=== PATIENT | female | born 1990 | race Caucasian/White ===

== ENCOUNTER 2023-06-22 10:30 | Outpatient (RCR) | payer BC, SELFPAY ==
[2023-06-09 10:54] VITALS: BP 108/65; PULSE 61; TEMP 36.4
[2023-06-09 10:56] VITALS: BMI 23.3
--- NOTE | 2023-06-09 11:40 | PC.ADMIT ---
Patient is a 33 year old female who came to [facility] on the advice of her therapist d/t increased depression with passive SI (no plan of intent) and increased anxiety. She is struggling to work and is currently taking a leave of absence from work d/t mental health. 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 Patient is alert and oriented x4. Calm and cooperative. Presented with depressed mood and anxious affect. Denied SI currently. Patient was given a copy of her safety plan if needed and I reviewed this with her. Patient denied any issues with substance use. Medications reconciled with patient and patient's pharmacy. She reports taking medications as prescribed.
--- NOTE | 2023-06-09 12:44 | P.HPPSP_ITS ---
HPI Date of Service: 06/09/23 Chief Complaint: depression,anxiety Sources of Information: patient interviewed, chart reviewed and crisis/core team assessment reviewed HPI Narrative: Patient is a 33 year old employed female who is being referred to [facility] by her therapist Paola Galeana. Patient describes a long history of depression, passive SI, chronic emotional and behavioral dysregulation, chronic destructive behaviors (mostly acting out throwing a fit ), particularly struggles with regulation in context of relationship dynamics interpersonal stressors, describes long standing issues with rejection sensitivity and fear of abandonment. Denies any aggressive behaviors toward partner or others. Mostly I get angry and frustrated easily, just throw tantrums and have a meltdown . Has been on previous med trials that were not helpful, but is currently on fluoxetine which she likes and feels is helpful and has been maitained on for over a year. Also on BCP which helps with migraines. Past Psychiatric History: IPLOC x 3: Feli x1, Harman x2 in [id number] [facility] in 2017 Reports history of depression since age 20. Reports a history of remote passive SI without intention or plan. Last experienced any SI over 7 years ago. One suicide attempt at age 20 by intentional overdose on mirtazapine, was medically treated and went IPLOC. Denies any legal history. No history of aggression. Previous med trials include: Zoloft, Wellbutrin, Remeron (overdosed on) ?Lamictal CURRENT MEDICATIONS: fluoxetine 80 mg qd oral control [facility] Medical History (Updated 06/22/23 @ 03:54 by Sepideh Duarte MD) Hx of migraines Narrative: Hospitalization x1 s/p toxic OD s/p hip surgery 2011 (repair torn labrum) Migraine headaches Concussions, no TBI No seizures G0 Nulligravid LMP: >1 yr ago Ht: 6'0 Wt: 172 lbs ALL: NKDA Surgical History (Updated 06/09/23 @ 10:53 by Kiera Pabon RN) History of hip surgery Social History: Lives at home with and their 2 children ages 10 yo daughter, 7 yo son (not biological to patient) She has been in a fpc relationship with her whom she recently in Dec 2022. 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 Is currently off on personal time, trying to apply for FMLA. Denies any precipitating or related incidents occurred at work. Raised in [place], [place] Graduated HS in 2010 Denies any hx of ADHD, LD, or other developmental hx Middle child of 3 with an older and younger brother Substance History: Alcohol use - socially ~ 1 beer/week. denies hx of abuse Cannabis in past No drug use hx No nicotine hx Trauma History: Denies hx of physical, sexual, emotional abuse Diagnostics Vital Signs (24Hr): Vital Signs - 24 hr 06/09/23 10:54 Temperature 97.6 F Pulse Rate 61 Blood Pressure 108/65 BMI result Body Mass Index 23.3 Meds/Allergies Meds Home Medications ?Medication ?Instructions ?Recorded ?Confirmed ?Type fluoxetine 40 mg capsule 80 mg PO BEDTIME 06/09/23 06/09/23 History norethindrone acetate 1 mg-ethinyl 1 tab PO DAILY 06/09/23 06/09/23 History estradiol 20 mcg tablet (Junel) propranolol 10 mg tablet See Rx Instructions .Route .COMPLEX 06/09/23 06/09/23 History rizatriptan 10 mg tablet See Rx Instructions .Route 06/09/23 06/09/23 History .COMPLEX PRN Migraine Headache Allergies Allergies Allergy/AdvReac Type Severity Reaction Status Date / Time No Known Allergies Allergy Unverified 12/06/19 18:48 Mental Status Exam Mental Status Exam Narrative: Alert, oriented, in no acute distress. Calm, cooperative, engaged. No psychomotor agitation or neurovegetative retardation. Eye contact maintained. Mood anxious,depressed, irritability affect blunted, minimal variablity. Speech normal. Thought process linear, coherent. Thought content related to stressors, +helplessness, +hopelessness, passive SI, vague plan, without intention.? Denies aggressive ideation or HI. No paranoia or delusional content elicited. No evidence of psychosis. Insight and judgment fair but adequate. Assessment & Plan Assessment & Plan (1) Mood disorder: Status: Acute Code(s): F39 - Unspecified mood [affective] disorder (2) Complex posttraumatic stress disorder: Status: Acute Code(s): F43.10 - Post-traumatic stress disorder, unspecified Plan Admit to PHP VS reviewed: feliceefjuana, BP 108/65 61bpm start oxcarbazepine 150 mg BID (will titrate as tolerated) continue fluoxetine 80 mg qAM Continue regular medications for now Routine lab work ordered UDS, EKG as indicated [facility] reviewed Continue to monitor as per protocol Patient educated on: diagnosis and medication risk/benefits Informed Consent: understands Reason for continued partial hosp. stay Substantial Risk for: inability to function, rapid decompensation and med/psych decompensation Certification I certify that partial hospital treatment is medically necessary due to the symptoms and problems resulting from the patient's mental illness and the failure to treat the patient at the partial hospital level of care would likely result in the patient requiring inpatient psychiatric care which could not be prevented at a less intensive level of care. Time Spent With Patient Time: Total time managing care of this patient today __60__ minutes.
--- NOTE | 2023-06-09 14:13 | HO.PHP ---
Client's case has been opened and reviewed in treatment team.
--- NOTE | 2023-06-17 23:38 | HO.PHPPROGNO ---
Subjective Subjective Date of Service: 06/17/23 Reason For Visit: depression,anxiety Interim History: Reports tolerating the oxcarbazepine, no side effects noted. She finds she has not been having any emotional outbursts, I'm not lashing out anymore . Says her has noticed a difference as well. She is not feeling irritable or angry. I genuinely fool good . No aggressive impulses or outbursts. Has remained under behavioral control. However she notes that she continues to shut down emotionally during times when her wants to talk about feelings, particularly when patient is receiving critical feedback about how 's feelings. Still feels very emotional internally, poor tolerance of feeling emotionally vulnerable, will just withdrawn from feeling emotionally overstimulated. Some attentional dysregulation, but limited in scope to and in the context of conversations with emotional content and reflects struggles with remote relational trauma/cPTSD issues. Denies SI, HI, AH, VH. Sleep, appetite, energy stable. ROS negative. Medication Compliance: Yes Side effects from medications: No Attending Groups: Yes Review of Systems Acute medical concerns: No Mental Status Exam Mental Status Exam Narrative: Alert, oriented, in no acute distress. Calm, cooperative, engaged. No psychomotor agitation or neurovegetative retardation. Eye contact maintained. Mood anxious,depressed, irritablity affect variable, brighter than expected otherwise mood congruent. Speech normal. Thought process linear, coherent. Thought content related to stressors, denies any helplessness, hopelessness or SI.? No aggressive ideation or HI. No paranoia or delusional content elicited. No evidence of psychosis. Insight and judgment fair but adequate. Diagnostics Vital Signs (24Hr): BMI result Body Mass Index 23.3 Assessment & Plan Assessment & Plan (1) Mood disorder: Status: Acute Code(s): F39 - Unspecified mood [affective] disorder (2) Complex posttraumatic stress disorder: Status: Acute Code(s): F43.10 - Post-traumatic stress disorder, unspecified Plan continue oxcarbazepine 300 mg BID start ABilify 2 mg qd continue fluoxetine 80 mg qd reviewed r/b/se of starting ABilify as well as drug drug interactions pt would like to cont at 80 mg fluoxetine, we do not anticipate needing a high dose of Abilify given oxcarbazepine is reportedly therapeutic Patient educated on: diagnosis, medication risk/benefits and substance abuse Informed Consent: understands Reason for contiued partial hosp. stay Substantial Risk for: inability to function, rapid decompensation and med/psych decompensation Certification I certify that partial hospital treatment is medically necessary due to the symptoms and problems resulting from the patient's mental illness and the failure to treat the patient at the partial hospital level of care would likely result in the patient requiring inpatient psychiatric care which could not be prevented at a less intensive level of care. Total time managing care of this patient today _30___ minutes. Discharge Plan Discharge Attending provider: Sepideh Duarte Medications: New oxcarbazepine 300 mg tablet See Rx Instructions .ROUTE .COMPLEX Qty: 30 0RF Rx Instructions: take 1/2 tablet po BID for 4-6 days then increase dose to one tablet po BID aripiprazole 2 mg tablet 2 mg PO BEDTIME Qty: 20 0RF Continued fluoxetine 40 mg capsule 80 mg PO BEDTIME propranolol 10 mg Tablet See Rx Instructions .ROUTE .COMPLEX Rx Instructions: Take 1/2 tab BID x 1 week then increase to 1 tab BID for 1 week, then increase to 2 tabs BID. norethindrone ac-eth estradiol [04/09 (21)] 1-20 mg-mcg tablet 1 tab PO DAILY rizatriptan 10 mg Tablet See Rx Instructions .ROUTE .COMPLEX PRN (Reason: Migraine Headache) Rx Instructions: Take 1/2 to 1 tab PRN daily for migraine headache. NTE 2 tabs in a day.
--- NOTE | 2023-06-21 15:56 | P.PNPSP_ITS ---
Subjective Subjective Date of Service: 06/21/23 Reason For Visit: depression,anxiety Interim History: Patient seen for follow-up, anticipating discharge tomorrow. I'm heading back to work..I got mixed feeling about it, don't totally feel ready . Says felt more sad on Abilify and stopped it. Is agreeable to switching to Latuda. Patient notes improvements in irritability since starting on Trileptal, severity has improved from a 10/10 on admission to a 5/10 in severity. CUrrent dose at 300 mg BID. Medication compliant, medications well-tolerated. Denies any adverse effects.? Mood is stable.? Denies any hopelessness or SI. Denies thoughts of harming self or others at this time. Denies any aggressive ideation or HI. Denies any paranoia or AH or VH. Sleep, appetite, energy stable. Mental Status Exam Mental Status Exam Narrative: Alert, oriented, in no acute distress. Calm, cooperative, engaged. Eye contact maintained. Mood anxious, depressed, irritability affect blunted, minimal variablity. Speech normal. Thought process linear, coherent. Thought content related to stressors, denies any current thoughts of harming self or others. Denies aggressive ideation or HI. No paranoia or delusional content elicited. No evidence of psychosis. Insight and judgment fair but adequate. Diagnostics Vital Signs (24Hr): BMI result Body Mass Index 23.3 Assessment & Plan Assessment & Plan (1) Mood disorder: Status: Acute Code(s): F39 - Unspecified mood [affective] disorder Assessment and Plan: r/o IED (2) Complex posttraumatic stress disorder: Status: Acute Code(s): F43.10 - Post-traumatic stress disorder, unspecified (3) Mental disorder: Status: Acute Code(s): F99 - Mental disorder, not otherwise specified Assessment and Plan: Unstable personality development r/o Borderline Personality Disorder Plan Discharge from [facility] tomorrow discontinue Abilify 2mg due to attributed adverse effects (constipation, worsening depression) will start Latuda 20 mg qd with supper for any issues will plan to speak with patient by phone tomorrow continue oxcarbazepine 300 mg BID continue fluoxetine 80 mg qAM continue propranolol 10 mg BID PRN headache continue rizatriptan for migraines Refills sent to pharmacy Will defer further medication management to outpatient provider Safety plan reviewed Patient educated on: diagnosis, medication risk/benefits and substance abuse Reason for contiued partial hosp. stay Substantial Risk for: harm to self, inability to function and rapid decompensation Certification I certify that partial hospital treatment is medically necessary due to the symptoms and problems resulting from the patient's mental illness and the failure to treat the patient at the partial hospital level of care would likely result in the patient requiring inpatient psychiatric care which could not be prevented at a less intensive level of care. Total time managing care of this patient today _30___ minutes. Discharge Plan Discharge Attending provider: Sepideh Duaret Medications: New lurasidone 20 mg tablet 20 mg PO QPM Qty: 20 0RF Rx Instructions: must administer with food (at least 350 calories) oxcarbazepine 300 mg tablet 300 mg PO BID 15 Days Qty: 30 0RF Continued fluoxetine 40 mg capsule 80 mg PO BEDTIME propranolol 10 mg Tablet See Rx Instructions .ROUTE .COMPLEX Rx Instructions: Take 1/2 tab BID x 1 week then increase to 1 tab BID for 1 week, then i ncrease to 2 tabs BID. norethindrone ac-eth estradiol [04/09 (21)] 1-20 mg-mcg tablet 1 tab PO DAILY rizatriptan 10 mg Tablet See Rx Instructions .ROUTE .COMPLEX PRN (Reason: Migraine Headache) Rx Instructions: Take 1/2 to 1 tab PRN daily for migraine headache. NTE 2 tabs in a day. Stand Alone Forms: Patient Portal Discharge page Print Language: Norwegian
--- NOTE | 2023-06-21 17:43 | HO.PHP ---
[facility] staff member followed up with Misty to review with her how she is feeling about discharge. Misty was tearful and talked about how she has been feeling ups and downs throughout the program. Misty talked about a recent position she wanted at work that she did not receive, which led to negative self talk. Misty also talked about her relationship. [facility] staff member suggested couples therapy and encouraged her to search for one on [employer] with her . Misty was receptive. Misty also expressed uncertainty around extending time and expressed she will inform the staff member tomorrow. [facility] staff member was receptive.
== END 2023-06-22 23:59 | disposition home or self-care (01) ==
LOC: HO.PHPA 10:30
PROVIDERS: Visit Provider Psychiatry & Neurology Psychiatry
DX: F39 Unspecified mood [affective] disorder (principal); F43.10 Post-traumatic stress disorder, unspecified; Z79.899 Other long term (current) drug therapy
CPT/HCPCS: 90791; 90853

== ENCOUNTER 2025-01-07 15:30 | Emergency (ER) | payer BC, SELFPAY ==
[2025-01-07 15:34] VITALS: BP 125/58; PULSE 61; RESP 18; TEMP 36.6; O2SAT 98; BMI 23.7
--- NOTE | 2025-01-07 15:34 | ED.GENADULT ---
HPI - General Adult General Chief complaint: Psychiatric Symptoms Stated complaint: SI Time Seen by Provider: 01/07/25 16:00 Source: patient Mode of arrival: ambulatory Limitations: no limitations History of Present Illness ED Provider: HPI narrative: 34-year-old female, history of depression, this is longstanding, passive SI in the past, reports that she has tried to hurt herself in the past , chronic emotional and behavioral dysregulation, states has been having suicidal thoughts, and no really underlying stressors identified has been getting worse over the past 2 weeks. No drug or alcohol use reported Related Data Home Medications ?Medication ?Instructions ?Recorded ?Confirmed fluoxetine 40 mg capsule 80 mg PO BEDTIME 06/09/23 01/07/25 norethindrone acetate 1 mg-ethinyl 1 tab PO DAILY 06/09/23 01/07/25 estradiol 20 mcg tablet (Junel) propranolol 10 mg tablet 40 mg PO DAILY 06/09/23 01/07/25 Previous Rx's ?Medication ?Instructions ?Recorded oxcarbazepine 300 mg tablet 300 mg PO BID 15 days #30 tabs 06/21/23 Allergies Allergy/AdvReac Type Severity Reaction Status Date / Time cyclobenzaprine Allergy Unknown Verified 01/07/25 15:35 gabapentin Allergy Unknown Verified 01/07/25 15:35 Review of Systems Constitutional: Constitutional: Reports as per [facility] Past Medical History Medical History (Updated 01/07/25 @ 18:38 by Hai Warner DO) Hx of migraines Surgical History (Updated 06/09/23 @ 10:53 by Kiera Pabon RN) History of hip surgery Social History Social History Household Members: Spouse, Family and Children Patient Tobacco Use Status: Never used Tobacco Advance Directives: No Advance Directives Information Provided: Yes Do you have a plan to hurt others: No Plan Physical Exam ED Exam Exam: General: ?Appears of stated age ? ?CV: RRR, no obvious murmurs appreciated ? ?Resp: ?No wheezing rales rhonchi no stridor moving air well ? Abd: ?Bowel sounds are present, no tenderness no rebound no rigidity ? ?MSK: FROM, strength 5/5 all extremities ? Skin: Warm, dry, intact, ? ?Neuro: ?Alert and oriented x3, moving upper and lower extremities symmetrically, no obvious facial asymmetry noted, cranial nerves 2-12 intact Psych: Good eye contact, emotional, tearful Vital Signs: Vital Signs - 24 hr 01/07/25 15:34 Temperature 98 F Pulse Rate 61 Respiratory Rate 18 Blood Pressure 125/58 L Pulse Oximetry 98 Oxygen Delivery Method Room Air BMI result Body Mass Index 23.7 Course Course Course Narrative: RME, this is a rapid medical exam performed by Steve Iglesias please refer to primary provider for complete H&P- 34-year-old female with a history of complex posttraumatic stress disorder, depression presents for evaluation of suicidal ideation. She reports thoughts of harming himself. She has not tried to harm himself at all but has in the past. Plan for medical clearance and care team consult Medical Decision Making Medical Decision Making MDM Narrative: 4:16 PM 01/07/2025 (Dr. Hai Warner): Pleasant young woman with a history of depression, on fluoxetine, history of complex posttraumatic stress disorder, mood disorder, presenting with suicidal thoughts, no stressors identified, has been using medications regular basis, offered to provide something for the patient that she was very tearful and anxious, she declined, will await clearance and crisis evaluation 6:36 PM 01/07/2025 (Dr. Hai Warner): Cleared by crisis team, we will follow up in respite Differential Diagnosis Differential Diagnoses: The differential diagnosis associated with the presentation includes (SI, HI, substance use disorder, anxiety, depression) Lab Data 01/07/25 16:32 01/07/25 16:33 Labs: Lab Results 01/07/25 01/07/25 Range/Units 16:32 16:33 WBC 8.7 (4.8-10.8) X10*3/uL RBC 3.71 L (4.20-5.50) X10*6/uL Hgb 11.3 L (12.0-16.0) g/dl Hct 33.2 L (37.0-47.0) % MCV 89.5 (80.0-98.0) fL MCH 30.5 (27.0-33.0) pg MCHC 34.0 (31.0-35.0) g/dl RDW 12.3 (11.0-16.0) % Plt Count 272 (160-400) X10*3/uL MPV 10.0 (9.4-12.3) fL Immature Gran % (Auto) 0.3 (0.0-0.4) % Neut % (Auto) 65.9 (45-73) % Lymph % (Auto) 25.5 (20-40) % Barnes % (Auto) 5.5 (2-11) % Eos % (Auto) 2.3 (0-4) % Baso % (Auto) 0.5 (0-2) % Lymph # (Auto) 2.2 (1.2-4.9) X10*3/uL Barnes # (Auto) 0.5 (0.1-1.2) X10*3/uL Eos # (Auto) 0.2 (0.0-0.4) X10*3/uL Baso # (Auto) 0.0 (0.0-0.2) X10*3/uL Abs Immat Gran (auto) 0.03 (0.00-0.03) X10*3/uL Absolute Neuts (auto) 5.7 (2.0-8.3) x10*3/uL Absolute Nucleated RBC 0.000 (0.0-0.012) X10*3/uL Nucleated RBC % (auto) 0.0 (0.0-0.2) /100WBC Sodium 139 (135-145) mmol/L Potassium 4.1 (3.3-5.1) mmol/L Chloride 107 (96-108) mmol/L Carbon Dioxide 27 (22-29) mmol/L Anion Gap 9 L (12-20) BUN 15 (9-16) mg/dL Creatinine 0.86 (0.5-1.4) mg/dL Estim Creat Clear Calc 108.4 Estimated GFR > 60 Random Glucose 87 (60-115) mg/dL Calcium 9.5 (8.4-10.2) mg/dL Total Bilirubin 0.3 (0.0-1.0) mg/dL AST 18 (5-31) U/L ALT 28 (0-31) U/L Alkaline Phosphatase 66 (39-117) U/L Total Protein 6.7 (6.5-8.0) g/dL Albumin 4.2 (3.5-5.0) g/dL Urine Color Yellow Urine Appearance Clear Urine pH 5.5 (5.0-9.0) Ur Specific [place] 1.025 (1.005-1.025) Urine Protein Negative (Neg-Trace) mg/dL Urine Glucose (UA) Negative (Negative) mg/dL Urine Ketones Negative (Negative) mg/dL Urine Blood Negative (Negative) Urine Nitrite Negative (Negative) Ur Leukocyte Esterase Trace H (Negative) Urine RBC 0-2 (0-2) /HPF Urine WBC 0-5 (0-5) /HPF Ur Squamous Epith Cells 0-2 (0-2) /HPF Urine Bacteria None Seen (None Seen) Hyaline Casts 0-2 (0-2) /LPF Urine Test NEGATIVE (NEGATIVE) Salicylates < 5.0 L (15-30) mg/dL Urine Opiates Screen Not Detected (Not Detect) Ur Buprenorphine Scrn Not Detected (Not Detect) ng/mL Ur Oxycodone Screen Not Detected (Not Detect) ng/mL Urine Methadone Screen Not Detected (Not Detect) ng/mL Urine Fentanyl Screen Not Detected (Not Detect) Acetaminophen < 3 (<30) mcg/mL Ur Barbiturates Screen Not Detected (Not Detect) Ur Phencyclidine Scrn Not Detected (Not Detect) Ur Amphetamines Screen Not Detected (Not Detect) U Benzodiazepines Scrn Not Detected (Not Detect) Urine Cocaine Screen Not Detected (Not Detect) U Marijuana (THC) Screen Not Detected (Not Detect) Ethyl Alcohol 12 mg/dL Discharge Plan Discharge Clinical Impression: Depression, Suicidal ideation Patient Disposition: Home, Self-Care Additional Instructions: You were seen in our Emergency Department today for treatment of a behavioral health issue. It is important after your visit that you follow up with either your behavioral health provider or a primary care doctor within 7 days.?Or follow up with a plan as discussed by our our behavioral team. If you have trouble finding a therapist you can reach out to [address] [phone] The National Suicide and Crisis Lifeline can be reached 7 days a week 24 hours a day.? Call 988 to speak with someone.? Return for any worsening symptoms or concerns such as thoughts of self harm or harm to others. Please call 911 if you feel your mental health is worsening.? Prescriptions: No Action fluoxetine 40 mg capsule 80 mg PO BEDTIME propranolol 10 mg Tablet 40 mg PO DAILY Rx Instructions: Take 1/2 tab BID x 1 week then increase to 1 tab BID for 1 week, then increase to 2 tabs BID. norethindrone ac-eth estradiol [04/09 ()] 1-20 mg-mcg tablet 1 tab PO DAILY oxcarbazepine 300 mg tablet 300 mg PO BID 15 Days Qty: 30 0RF Interventions: [place]-Suicide Risk Severity Scale Last Done: 01/07/25 16:09 Print Language: [place] Citizen
[2025-01-07 16:41] LABS: MANUAL DIFF FLAG NO
[2025-01-07 16:42] LABS: Hematocrit 33.2 % (37.0-47.0); Hemoglobin 11.3 g/dl (12.0-16.0); Imm Gran Abs Auto 0.03 X10*3/uL (0.00-0.03); Imm Gran Pct Auto 0.3 % (0.0-0.4); Lymphocytes Absolute Auto 2.2 X10*3/uL (1.2-4.9); Mean Corpuscular HGB Conc 34.0 g/dl (31.0-35.0); Mean Corpuscular Hemoglobin 30.5 pg (27.0-33.0); Mean Corpuscular Volume 89.5 fL (80.0-98.0); NRBC Abs Auto 0.000 X10*3/uL (0.0-0.012); NRBC Pct Auto 0.0 /100WBC (0.0-0.2); Platelet Count 272 X10*3/uL (160-400); Red Blood Count 3.71 X10*6/uL (4.20-5.50); White Blood Count 8.7 X10*3/uL (4.8-10.8)
[2025-01-07 16:46] LABS: Appearance Urine Clear; Glucose Urine UA Negative (Negative); PH 5.5 (5.0-9.0); Specific Gravity - Urine 1.025 (1.005-1.025); UMIC TRIGGER UA YES
[2025-01-07 16:47] LABS: UPreg QC Valid YES
[2025-01-07 16:54] LABS: Cannabinoid Screen Urine Not Detected (Not Detect)
[2025-01-07 16:59] LABS: Alanine Aminotransferase 28 U/L (0-31); Albumin Level 4.2 g/dL (3.5-5.0); Alkaline Phosphatase 66 U/L (39-117); Anion Gap 9 (12-20); Aspartate Amino Transferase 18 U/L (5-31); Blood Urea Nitrogen 15 mg/dL (9-16); Calcium 9.5 mg/dL (8.4-10.2); Carbon Dioxide 27 mmol/L (22-29); Chloride 107 mmol/L (96-108); Creatinine Clr Calc Pharmacy 108.4; Estimated Glomerular Filt Rate > 60; Potassium 4.1 mmol/L (3.3-5.1); Sodium 139 mmol/L (135-145); Total Protein 6.7 g/dL (6.5-8.0)
[2025-01-07 17:00] LABS: Acetaminophen LAB < 3 mcg/mL (<30); Salicylate < 5.0 mg/dL (15-30)
[2025-01-07 18:41] VITALS: BP 125/58; PULSE 61; RESP 18; TEMP 37.1; O2SAT 98
--- NOTE | 2025-01-07 19:56 | MHC.CARE ---
Pt accepted to [facility] for Tuesday (01/08/25) with 8 am arrival time, Pt to bring all of her medications. Pt to be discharged and will get her medication and present to [facility] at [address] [place] [address] Entrance D. -Pt contracted for safety, is future oriented. [facility] referral will be placed as well for 3 day follow up.
--- OUTSIDE RECORDS SUMMARY | 2025-01-07 20:05 | XMS_ITS | Encounter Summary ---
Author Organization [facility] Address [address] [place] [address] Phone Care Team Providers Care Service Developer Name Role Phone True Abreu MD Primary Care Provider [phone] Jamia Gregory CNP Primary Care Provider Jamia Gregory [facility] Primary Care Provider Tyler Ignacio MD Primary Care Provider [phone] Marty Mazariegos MD, PhD Unavailable [phone] Encounter Details Date Type Department Care Team (Late st Contact Info) Description 11/03/2017 Procedure Pass [facility], Ct Scan - [address] [address] Social History Tobacco Use Types Packs/Day Years Used Date Smoking Tobacco: Never Comments Unknown Sex and Gender Information Value Date Recorded Sex Assigned at Not on file Legal Sex Female 6:53 PM EST Gender Identity Female 11/03/2017 5:09 PM EDT Sexual Orientation Not on file documented as of this encounter Plan of Treatment Upcoming Encounters Date Type Department Care Team (Late st Contact Info) Description 06/17/2025 8:00 AM EDT Office Visit [facility] Internal Medicine [address] [place], [place] [id number] Tyler Ignacio MD [address] [place] [address] documented as of this encounter Visit Diagnoses Not on filedocumented in this encounter Care Teams Service Developer Relationship Specialty Start Date End Date True Abreu MD PCP - General Internal Medicine 11/03/17 10/03/19 Jamia Gregory CNP [address] [place] [address] PCP - General Internal Medicine 10/04/19 05/11/20 Jamia Gregory CNP [address] [place], [place] [phone] PCP - General Internal Medicine 05/12/20 02/16/23 Tyler Ignacio MD [address] [place] [address] PCP - General Internal Medicine 02/17/23 Marty Mazariegos MD, PhD [address] [place] [address] Neurology 02/13/24 documented as of this encounter Additional Source Comments The information contained in this document represents components of the legal health record. It is not the complete legal health record.[facility]
--- OUTSIDE RECORDS SUMMARY | 2025-01-07 20:05 | XMS_ITS | Clinical Summary ---
Author Organization [facility] Address [address] [place] [address] Phone Care Team Providers Care Email Campaign Specialist Name Role Phone Tyler Ignacio MD Primary Care Provider [phone] Marty Mazariegos MD, PhD Unavailable [phone] Allergies Active Allergy Reactions Criticality Noted Date Comments Cyclobenzaprine Seizures 03/16/2024 Seizure activity 2023 Gabapentin Seizures 03/16/2024 Seizure activity 2023, used concurrently with cyclobenzaprine Medications cholecalciferol (VITAMIN D3) 25 MCG (1,000 unit) tablet Take 1,000 Units by mouth daily. Active OXcarbazepine (TRILEPTAL) 300 MG tablet Take 1 tablet by mouth 2 (two) times a day. 12/30/2023 Active propranoloL (INDERAL) 40 MG immediate release tablet Take 40 mg by mouth daily. 12/31/2023 Active norethindrone-et hinyl estradiol (04/09 28 DAY, 21X7,) 1 mg-20 mcg (21)/75 mg (7) per tablet Take 1 tablet by mouth daily. 84 tablet 4 01/30/2024 Active FLUoxetine (PROZAC) 20 MG capsule Take 60 mg by mouth every morning. 11/23/2024 Active Active Problems Problem Noted Date Diagnosed Date White matter abnormality on MRI of brain 024 Assessment & Plan (03/16/2024 5:26 PM EST): Known history migraine SHELL. Will repeat Lyme screening today given findings. Acute pain of left shoulder 02/20/2024 Assessment & Plan (02/20/2024 12:19 PM EST): Continue naproxen, take with food. Will follow up with outpatient ortho, PT. Will re-evaluate on 03/16/24. Seizure 02/02/2024 Assessment & Plan (03/16/2024 5:26 PM EST): Await EEG. As Amado has had improved symptoms, she should be able to return to work 04/02/24. 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 [place] forms detailing this plan have been completed and provided to patient. A copy is in medical record. If Dr. Mazariegos has any further recommendations for follow up after EEG, we can plan another follow up to discuss the planned return to work. Assessment & Plan (02/20/2024 12:20 PM EST): Await nay MRI, EEG. To follow up with neurology thereafter. Reviewed safety precautions. If any worsened memory concerns, new neurologic symptoms to follow up immediately. Assessment & Plan (02/02/2024 5:06 PM EST): Follow up with Dr. Mazariegos Tuesday02/06/24, will also attempt to move up [facility] Neurology appt. No driving for 6 mo. Will follow up with any needs re: work accomodations. Anterior shoulder dislocation, left, sequela Assessment & Plan (02/02/2024 5:08 PM EST): Continue sling use. Will continue Tylenol and Ibuprofen use. Follow up with ortho on Tuesday. Encounter for gynecological examination without abnormal finding 12/06/2022 Menstrual migraine without s tatus migrainosus, not intractable 04/27/2021 Assessment & Plan (04/27/2021 3:42 PM EST): Improvement since starting OCPs. Recommend continuation of current pill. Ok to cycle continuously for bleeding suppression. Discussed potential for breakthrough bleeding. If this occurs persistently, recommend stopping pill x5 days then restart. Can also use higher EE dose if breakthrough bleeding continues to be an issue. Rx adjusted to reflect continuous cycling. Chest pain 12/22/2020 Assessment & Plan (12/22/2020 3:09 PM EDT): The patient does not have any pathognomonic symptoms that would point to the cause of her chest pain but if we had to put everything together it would seem that the first problem that came about was the chronic mastoiditis left-sided that caused a headache. What caused the mastoiditis is unclear. Patient then takes ibuprofen in large quantities to get rid of the headache over long period of time. 3 weeks ago perhaps developing some inflammation in the esophagus the patient could be getting atypical presenting reflux that is manifesting as chest pain followed by anxiety which leads to shortness of breath. She does have some tenderness in the left mastoid area. Let us reduce the acid production in your stomach and in doing so reduce it the level of inflammation in the GI tract. Hope is to take away the chest pain this way. The patient still has headaches though so we will switch her from ibuprofen to the lesser dosing of naproxen with a consideration to switch to meloxicam. Patient will keep up water intake to avoid dehydration. We will see how this works out for her in 2 weeks I will see her again. We might consider a upper GI series. We might consider also [facility] for the left-sided mastoiditis. Obtain a chest x-ray to rule out any chest phenomenon that was not picked up on auscultation. Patient in agreement with said plan. Chronic left mastoiditis 12/22/2020 Hip pain 05/04/2012 Overview (05/11/2014): Hip pain Depressive disorder Encounters Date Type Department Care Team Description 11/30/2024 3:00 PM EDT Office Visit [facility] Internal Medicine [address] [place] [address] Tyler Ignacio MD Sleep arousal disorder (Primary Dx); Weight gain; Snoring; Overweight (BMI 25.0-29.9); Elevated ferritin; Anemia, unspecified type; Liver function abnormality; Pure hypercholesterolemia ; Screening for diabetes mellitus (DM) 11/23/2024 Telephone [facility] Internal Medicine [address] [place] [address] Tyler Ignacio MD Triage (Green+Sleep issues) from Last 3 Months Immunizations Immunization Administration Dates Next Due Tdap 07/29/2015 Family History Medical History Relation Comments No Known Problems Brother 1 No Known Problems Brother 2 No Known Problems Father Cancer Maternal Grandfather Clotting disorder Mother Cancer Paternal Grandfather Relation Status Comments Brother 1 Alive Brother 2 Alive Father Alive Maternal Grandfather Mother Alive Paternal Grandfather Social History Tobacco Use Types Packs/Day Years Used Date Smoking Tobacco: Never Smokeless Tobacco: Never Alcohol Use Standard Drinks/Week Comments Yes 0 (1 standard drink = 0.6 oz pur e alcohol) rarely 1-2 drink month Child or Family Care Answer Date Record ed Do you have problems with on e of the following making it difficult for you to work, study, or receive health care? No 06/07/2024 Education Answer Date Recorded Are you interested in help w ith more adult education (for example, completing high school, GED, job training, learning the [place] language, technical skills, or developing parenting skills)? No 06/07/2024 Are you concerned about learning? Not on file 06/07/2024 No 06/07/2024 Yes 06/07/2024 Food Answer Date Recorded Within the past 6 months we worried whether our food would run out before we got money to buy more. Never True 06/07/2024 Within the past 6 months the food we bought just didn't last and we didn't have enough money to get more. Never True Residential Stability Answer Date Recor ded What is your housing situation today? I have lori sing 06/07/2024 How many times have you move d in the past 12 months? Zero (I did not move) 06/07/2024 Paying for Meds Answer Date Recorded Do you have trouble paying for medicines? No 06/07/2024 Paying Utility Bills Answer Date Record ed Do you have trouble paying your heating or elect ricity bill? No 06/07/2024 Transportation Answer Date Recorded Has the lack of transportati on kept you from medical appointments or from getting medications? No 06/07/2024 Unemployment Answer Date Recorded Are you currently unemployed or working on a part-time or temporary basis, and looking for work? No 06/07/2024 Digital Access Answer Date Recorded No 06/07/2024 Yes 06/07/2024 Do you have reliable internet access at home? Ye s 06/07/2024 Do you have a device (e.g., phone, tablet, computer) with a working camera? Yes 06/07/2024 Intimate Partner Violence Answer Date R ecorded Are you denied basic needs s uch as food, clothing, or medical care? No 06/07/2024 In the past 12 months have y ou been in a relationship with a person who hurts, threatens, or tries to control you? No 06/07/2024 Are you denied basic needs s uch as food, clothing, or medical care? No 06/07/2024 In the past 12 months have y ou been in a relationship with a person who hurts, threatens, or tries to control you? No 06/07/2024 Comments No Sex and Gender Information Value Date Recorded Sex Assigned at Not on file Legal Sex Female 6:53 PM EST Gender Identity Female 11/03/2017 5:09 PM EDT Sexual Orientation Not on file Last Filed Vital Signs Vital Sign Reading Time Taken Comments Blood Pressure 92/60 11/30/2024 3:12 PM EDT Pulse 69 11/30/2024 3:12 PM EDT Temperature 36.1 C (97 F) 11/30/2024 3:12 PM EDT Respiratory Rate 20 06/14/2024 8:42 AM EDT Oxygen Saturation 99% 11/30/2024 3:12 PM EDT Inhaled Oxygen Concentration - - Weight 83.8 kg (184 lb 12.8 oz) 11/30/2024 3:12 PM EDT Height 180.5 cm (5' 11.06 ) 11/30/2024 3:12 PM E DT Body Mass Index 25.73 11/30/2024 3:12 PM EDT Plan of Treatment Upcoming Encounters Date Type Department Care Team (Late st Contact Info) Description 06/17/2025 8:00 AM EDT Office Visit [facility] Internal Medicine [address] [place] [address] Tyler Ignacio MD [address] [place] [address] [email or web address] Maintenance Due Date Last Done Comments HEPATITIS C SCREENING 2010 HIV ONE-TIME SCREENING (18-6 5 YEARS) 2010 PAP SMEAR 04/24/2024 04/24/2021, 07/29/2015 INFLUENZA VACCINE (#1) 2024 COVID-19 VACCINE (3 2024-2 6 season) 2024 07/25/2020, 07/03/2020 DEPRESSION SCREENING 06/07/2025 06/07/2024, 02/01/2024 Adult Td,Tdap Booster 07/28/2025 07/29/2015 SMOKING STATUS SCREENING (On ce After 26 Yrs) Completed 11/30/2024 HEPATITIS A VACCINES Aged Out No long er eligible based on patient's age to complete this topic HIB VACCINES Aged Out No longer eligi ble based on patient's age to complete this topic MENINGOCOCCAL VACCINES (ACWY) Aged Out No longer eligible based on patient's age to complete this topic MENINGOCOCCAL VACCINES (B) Aged Out N o longer eligible based on patient's age to complete this topic PNEUMOCOCCAL VACCINES (0-49 years) Aged Out No longer eligible b ased on patient's age to complete this topic Medical Devices Not on file Procedures Procedure Name Priority Date/Time Associated Diagnosis Comments PAP TEST Routine 04/24/2021 12:00 AM EST from Last 3 Months or Most Recently Relevant to Health Maintenance Results * Pap Smear (04/24/2021 12:00 AM EST) 04/24/2021 04/27/2021 9:2 1 AM EST Narrative SEE NARRATIVE - 04/30/2021 4:33 PM EST [address] [address] Clipper Automatic: Leslie Baer MD SUPERVISOR TELE[employer]ERKS Cytology Report FINAL DIAGNOSIS A. PAP SMEAR (SUREPATH) CE: SPECIMEN ADEQUACY: Satisfactory for evaluation; transformation zone present. Limited by inflammation INTERPRETATION: NEGATIVE FOR INTRAEPITHELIAL LESION OR MALIGNANCY. Electronically Signed Out By: SID Gordon(ASCP) SID Naidu(ASCP) The Pap test is a screening test primarily for squamous cancers and precursors and has associated false-negative and false-positive results. New technologies such as liquid-based preparations may decrease but will not eliminate all false-negative results. Regular sampling and follow-up of unexplained clinical signs and symptoms are recommended to minimize false negative results. CLINICAL HISTORY Date of Last Menstrual Period: 04-14-2021 Other Clinical Conditions: Screening Pap SPECIMEN SOURCE A: PAP SMEAR (SUREPATH) CE Patient Name: AMADO POZO : 1990 (Age: 30) Sex: F Institution: [facility] Location: [facility] Date of Collection: 04/24/2021 Date of Reported: 04/30/2021 16:33 Results to: Sheridan Jarquin MD us Sheridan Jarquin MD CYTOLOGY ORDERABLES Final Res ult SEE NARRATIVE from Last 3 Months or Most Recently Relevant to Health Maintenance Insurance [employer] [facility] [employer] [facility] [employer] [facility] [employer] [facility] [place] [address] [facility] Care Teams Email Campaign Specialist Relationship Specialty Start Date End Date Tyler Ignacio MD [address] [place] [address] [email or web address] PCP - General Internal Medicine 02/17/23 Marty Mazariegos MD, PhD [address] [place] [address] Neurology 02/13/24 Additional Source Comments The information contained in this document represents components of the legal health record. It is not the complete legal health record.[facility]
--- OUTSIDE RECORDS SUMMARY | 2025-01-07 20:05 | XMS_ITS | Encounter Summary ---
Author Organization [facility] Address [address] [place] [address] Phone Care Team Providers Care Physical Integration Practitioner Name Role Phone Jamia Gregory CNP Primary Care Provider Jamia Gregory CNP Primary Care Provider Tyler Ignacio MD Primary Care Provider [phone] Marty Mazariegos MD, PhD Unavailable [phone] Encounter Details Date Type Department Care Team (Late st Contact Info) Description 10/04/2019 Procedure Pass [address] [place] [address] Social History Tobacco Use Types Packs/Day Years Used Date Smoking Tobacco: Never Smokeless Tobacco: Never Alcohol Use Standard Drinks/Week Comments Never 0 (1 standard drink = 0.6 oz pur e alcohol) Comments Unknown Sex and Gender Information Value Date Recorded Sex Assigned at Not on file Legal Sex Female 6:53 PM EST Gender Identity Female 11/03/2017 5:09 PM EDT Sexual Orientation Not on file documented as of this encounter Last Filed Vital Signs Vital Sign Reading Time Taken Comments Blood Pressure - - Pulse - - Temperature - - Respiratory Rate - - Oxygen Saturation - - Inhaled Oxygen Concentration - - Weight 71.2 kg (157 lb) 10/04/2019 5:59 PM EDT Height 182.9 cm (6') 10/04/2019 5:59 PM EDT Body Mass Index 21.29 10/04/2019 5:59 PM EDT documented in this encounter Functional Status documented as of this encounter Plan of Treatment Upcoming Encounters Date Type Department Care Team (Late st Contact Info) Description 06/17/2025 8:00 AM EDT Office Visit [facility] Internal Medicine [address] [place] [address] Tyler Ignacio MD [address] [place] [address] [email or web address] documented as of this encounter Visit Diagnoses Not on filedocumented in this encounter Care Teams Physical Integration Practitioner Relationship Specialty Start Date End Date Jamia Gregory CNP [address] [place] [address] PCP - General Internal Medicine 10/04/19 05/11/20 Jamia Gregory CNP [address] [place] [address] PCP - General Internal Medicine 05/12/20 02/16/23 Tyler Ignacio MD [address] [place] [address] PCP - General Internal Medicine 02/17/23 Marty Mazariegos MD, PhD [address] [place] [email or web address] Neurology 02/13/24 documented as of this encounter Additional Source Comments The information contained in this document represents components of the legal health record. It is not the complete legal health record.[facility]
--- OUTSIDE RECORDS SUMMARY | 2025-01-07 20:05 | XMS_ITS | Encounter Summary ---
Author Organization [facility] Address [address] [place] [address] Phone Care Team Providers Care Nfl Player Name Role Phone Jamia Gregory SOIL CONSERVATION TECHNICIAN Primary Care Provider Tyler Ignacio MD Primary Care Provider [phone] Marty Mazariegos MD, PhD Unavailable [phone] Reason for Visit * Reason Onset Date Comments 3 day migraine 07/21/2022 Emesis 07/21/2022 Encounter Details Date Type Department Care Team (Late st Contact Info) Description 07/21/2022 Nurse Triage [facility] Internal Medicine [address] [place], [place] [phone] Jamia Gregory CNP [address] [place] [address] [email or web address] 3 day migraine; Emesis Social History Tobacco Use Types Packs/Day Years Used Date Smoking Tobacco: Never Smokeless Tobacco: Never Alcohol Use Standard Drinks/Week Comments Yes 0 (1 standard drink = 0.6 oz pur e alcohol) rarely 0-1 drink month Education Answer Date Recorded Are you interested in more education? Not on juan pablo e 07/17/2022 Are you concerned about learning? Not on file 07/17/2022 No 07/17/2022 No 07/17/2022 Comments No Sex and Gender Information Value Date Recorded Sex Assigned at Not on file Legal Sex Female 6:53 PM EST Gender Identity Female 11/03/2017 5:09 PM EDT Sexual Orientation Not on file documented as of this encounter Progress Notes * Shivani Middleton, RN - 07/21/2022 3:37 PM EDT Spoke with patient. Pt has had a pretty consistent migraine since Tuesday. Vomited all Tuesday night.Yesterday and today has had bad migraine and super nauseous. Only vomited once today. Pt has many migraines last year. They kind of went away. Now feels like it's in a different part of head. Before was on left forehead, this time it is on the right. Pt states pain is 7.5-8/10. No numbness, tingling, vision disturbances, or fever. Pt did see neurologist for this before. Triage module states have pt reach out to them. Stated if they cannot get her in soon to go to as we have no availability the rest of this week. Pt will call now. Pt voiced understanding. Nurse Triage Encounter Note Reason for Triage Misty Myers contacted office for Other,Emesis Call Disposition Orthotic Practitioner Patient/caregiver understands and will follow disposition: Yes Patient/caregiver understands and will follow care advice: Yes, Plans To Follow Advice Disposition Comments: Protocols used: [id number] Initial Symptom Screening and Assessment IA None Care Advice Given Care Advice Patient/Caregiver understands and will follow care advice?: Yes, plans to follow advice REASSURANCE AND EDUCATION - MIGRAINE HEADACHE: * You have told me that this headache is like migraine headaches that you have had before. If the pattern or amount of pain of your headache changes, you will need to see your doctor (or NEEDLE FELT MAKING MACHINE OPERATOR/PA). * Migraine headaches are also called vascular headaches. A migraine can be anywhere from mild to very severe. People with migraines often describe it as throbbing or pulsing. It is often just on one side. Other symptoms include nausea and vomiting. Some people will have visual or other warning symptoms (aura) that a migraine is coming. * This sounds like a painful headache, but there are pain medicines you can take and other instructions I can give you to reduce the pain. * Here is some care advice that should help. PAIN MEDICINES: * For pain relief, you can take either acetaminophen, ibuprofen, or naproxen. * They are ndvg-bmx-dombfmh (OTC) pain drugs. You can buy them at the drugstore. * ACETAMINOPHEN - REGULAR STRENGTH TYLENOL: Take 650 mg (two 325 mg pills) by mouth every 4 to 6 hours as needed. Each Regular Strength Tylenol pill has 325 mg of acetaminophen. The most you should take each day is 3,250 mg (10 pills a day). * ACETAMINOPHEN - EXTRA STRENGTH TYLENOL: Take 1,000 mg (two 500 mg pills) every 8 hours as needed.Each Extra Strength Tylenol pill has 500 mg of acetaminophen. The most you should take each day is 3,000 mg (6 pills a day). * IBUPROFEN (E.G., MOTRIN, ADVIL): Take 400 mg (two 200 mg pills) by mouth every 6 hours. The most you should take each day is 1,200 mg (six 200 mg pills), unless your doctor has told you to take more. * NAPROXEN (E.G., ALEVE): Take 220 mg (one 220 mg pill) by mouth every 8 to 12 hours as needed. Youmay take 440 mg (two 220 mg pills) for your first dose. The most you should take each day is 660 mg(three 220 mg pills a day), unless your doctor has told you to take more. MIGRAINE MEDICATION: * If your doctor has prescribed specific medication for your migraine, take it as directed as soon as the migraine starts. REST: * Lie down in a dark quiet place and relax until feeling better. * Close your eyes and imagine your entire body relaxing. * Try to fall asleep. Individuals with migraines often awaken from sleep with their headache relieved. APPLY COLD TO THE AREA: * Apply a cold wet washcloth or cold pack to the forehead for 20 minutes. Patient will call back with additional questions or if symptoms change or worsen Shivani Middleton RN Reason for Disposition and Assessment Reason for Disposition ??? SEVERE headache and vomiting Protocols used: [id number] * Xi Sprague - 07/21/2022 12:14 PM EDT PTLVM on triage line requesting to be advised and to book an appt very soon. Pt has had a migraine lasting for 3 days and has began vomiting. Please contact and advise. documented in this encounter Plan of Treatment Upcoming Encounters Date Type Department Care Team (Late st Contact Info) Description 06/17/2025 8:00 AM EDT Office Visit [facility] Internal Medicine [address] [place] [address] Tyler Ignacio MD [address] [place] [address] [email or web address] documented as of this encounter Visit Diagnoses Not on filedocumented in this encounter Additional Health Concerns Assessment Noted Time PHQ-2 Depression Total Score: 0 05/26/19 23 11:21 AM EST documented as of this encounter Care Teams Nfl Player Relationship Specialty Start Date End Date Jamia Gregory CNP [address] [place] [address] PCP - General Internal Medicine 05/12/20 02/16/23 Tyler Ignacio MD [address] [place] [address] PCP - General Internal Medicine 02/17/23 Marty Mazariegos MD, PhD [address] [place] [address] [place] [address] [email or web address] Neurology 02/13/24 documented as of this encounter Additional Source Comments The information contained in this document represents components of the legal health record. It is not the complete legal health record.[facility]
== END 2025-01-07 19:01 | disposition home or self-care (01) ==
PROVIDERS: Physician Assistant; Emergency Provider Emergency Medicine; PCP Internal Medicine
DX: F32.A Depression, unspecified (principal); R45.851 Suicidal ideations; F43.10 Post-traumatic stress disorder, unspecified
CPT/HCPCS: 36415; 80053; 80143; 80179; 80307; 81001; 81025; 85025; 99284; S9485